=== PATIENT | female | born 1940 | race Hispanic/Latino ===

== ENCOUNTER 2017-08-20 23:53 | Emergency (ER) | payer MEDICARE ==
[2017-08-21] MEDS ORDERED: GUAIFENESIN-CODEINE 5 ML SYRUP ONE (00:26)
[2017-08-21] MEDS ORDERED: ONDANSETRON ODT 4 MG TAB ONE (01:49)
== END 2017-08-21 02:34 | disposition home or self-care (01) ==
LOC: EDH 23:53
DX: J06.9 Acute upper respiratory infection, unspecified (principal); I10 Essential (primary) hypertension; E78.5 Hyperlipidemia, unspecified; C50.919 Malignant neoplasm of unspecified site of unspecified female breast; Z90.49 Acquired absence of other specified parts of digestive tract

== ENCOUNTER 2018-04-10 17:29 | Emergency (ER) | payer OTHER, MEDICARE ==
[2018-04-10 18:06] LABS: BASOPHILS % (AUTO) 1.2 % (0.0-5.0); HEMATOCRIT 39.7 % (36-48); LYMPHOCYTES % (AUTO) 27.2 % (21.0-51.0); MEAN CORPUSCULAR HGB CONC 34.4 g/dL (32.0-36.0); MEAN CORPUSCULAR VOLUME 90.1 fL (79-99); MONOCYTES % (AUTO) 8.6 % (3.0-13.0); NUCLEATED RED BLOOD CELLS 0.1 % (0.0-0.19); PLATELET COUNT (AUTO) 172 K/uL (130-400); RED BLOOD CELL COUNT(AUTO) 4.41 MIL/uL (4.00-5.50); RED CELL DISTRIBUTION WIDTH 14.2 % (11.0-15.5); WHITE BLOOD COUNT (AUTO) 4.8 K/uL (4.8-10.8)
[2018-04-10 18:21] LABS: CREATININE 0.7 mg/dL (0.5-1.5); POTASSIUM 4.1 mmol/L (3.5-5.1)
[2018-04-10 18:25] LABS: ALBUMIN 3.6 g/dL (3.5-5.0); BILIRUBIN,TOTAL 0.2 mg/dL (0.2-1.0); INR 0.95 (0.85-1.15); PARTIAL THROMBOPLASTIN TIME 29.2 SEC (26.3-35.5); TOTAL PROTEIN, SERUM 7.9 g/dL (6.0-8.3)
[2018-04-10 18:35] LABS: APPEARANCE,URINE Clear (CLEAR); BILIRUBIN,URINE Negative (NEGATIVE); COLOR,URINE Yellow (YELLOW); GLUCOSE, URINE (UA) Negative (NEGATIVE); KETONES,URINE Negative (NEGATIVE); LEUKOCYTE ESTERASE ,URINE Small (NEGATIVE); NITRATE,URINE Negative (NEGATIVE); OCCULT BLOOD,URINE Small (NEGATIVE); PH,URINE 7.5 (5.0-8.0); PROTEIN,URINE Negative (NEGATIVE); UROBILINOGEN,URINE 0.2 mg/dL (0.2-1.0)
[2018-04-10 18:46] LABS: BACTERIA,URINE Rare /HPF (None Seen); SQUAMOUS EPITHELIAL CELL,UR Rare /HPF (0-2)
== END 2018-04-10 19:15 | disposition home or self-care (01) ==
LOC: EDH 17:29
DX: I10 Essential (primary) hypertension (principal); M54.2 Cervicalgia; E78.5 Hyperlipidemia, unspecified; Z85.3 Personal history of malignant neoplasm of breast
CPT/HCPCS: 36415; 80053; 81001; 82550; 84484; 85025; 85610; 85730; 93005

== ENCOUNTER 2025-01-04 19:43 | Emergency (ER) | payer OTHER, MEDICAID ==
[~2025-01-04] VITALS: Ht 149.9 cm; Wt 63.0 kg
--- NOTE | 2025-01-04 19:49 | NUR ---
UA CUP NEEDED
--- NOTE | 2025-01-04 20:15 | ERN ---
ED Note History of Present Illness Stated Complaint: HEADACHE, GBW Chief Complaint: Multiple Complaints Time Seen by MD: 19:46 Time Seen by Midlevel: 19:46 Dictation: The patient is an 84-year-old female with a history of hypertension breast cancer on remission, cholecystectomy who presents to the emergency department with complaints of generalized weakness and sensation of feeling hot to her head onset 3:00 p.m.. Patient reports she usually gets like this when she is outside for long periods of time in the heat. Patient denies any recent falls or head trauma. Denies any nausea vomiting or diarrhea. Denies any chest pain or shortness of breath. Patient denies any upper respiratory symptoms. Denies any other symptoms. Allergies: Coded Allergies: ceftriaxone (Unverified Allergy, Mild, RASH, 01/04/25) No Known Allergies (Unverified Allergy, Unknown, 01/04/25) Home Meds Active Scripts Nitrofurantoin Monohyd/M-Cryst (Macrobid 100 mg Capsule) 100 Mg Capsule, 1 CAP PO BID for 5 Days, #10 CAP 0 Refills Prov:JADESOURAVMORIAH INSPECTOR OPEN DIE 01/04/25 Discontinued Scripts Cephalexin Monohydrate (Keflex) 500 Mg Cap, 500 MG PO BID for 7 Days, #14 CAP Prov:MORIAH HANSEN INSPECTOR [facility] DIE 01/04/25 Past Medical History Past Medical History: GERD, High Cholesterol, Hypertension, Other Additional Past Medical Hx: BREAST CANCER Surgical History: Cholecystectomy, Other Surgical History Other: LEFT BREAST RN Note Reviewed/Agreed w/PFSH: Yes Review of System Dictation Constitutional: Negative for fever,chills, and weight loss Eyes: Negative for injury, pain,redness, and discharge ENT: Negative for injury,pain or swelling Cardiovascular: Negative for chest pain, palpitations, and edema Respiratory: Negative for shortness of breath, cough, and wheezing, Abdomen/GI: Negative for abdominal pain, nausea, vomiting, diarrhea, and constipation Back: Negative for injury and pain : Negative for injury, bleeding and discharge MS/Extremity: Negative for injury and deformity Skin: Negative for rash, and discoloration Neuro: Negative for numbness, tingling, and seizure positive for headache, weakness Psych: Negative for suicide ideation, homicidal ideation, and hallucinations Initial Vital Sign VS Vital Signs Date Time Temp Pulse Resp B/P (MAP) Pulse Ox O2 Delivery O2 Flow Rate FiO2 01/04/25 19:44 97.9 79 18 190/80 98 Room Air 01/04/25 20:09 0 21 Physical Exam Dictation Vital Signs reviewed General Appearance: Alert, oriented x 3, no acute distress, well developed, nourished. Head and Face: non-traumatic. Eyes: PERRL, pink conjunctivas, eyelid no trauma, anterior chamber with arcus senilis. Ears: Pinnas intact and no signs of trauma or erythema ear canals clear and no discharge TM no erythema Nose: No discharge, no bleeding. Oropharynx: Mouth normal, tongue pink. pharynx clear,no erythema, tonsils no exudates, no abscesses noted, mucous membrane moist Neck: Supple, non-tender, no thyromegaly, no masses, no JVD, no bruits Breast:Deferred Chest:No tenderness, no crepitus, no paradoxical movement, no retractions Lungs:Clear, well-ventilated, symmetric, no rales, no wheezing, no rhonchi, no stridor, good breath sounds bilaterally Heart: Regular rate, regular rhythm, no murmur, no gallops Vascular: no peripheral edema, Abdomen: Soft, positive bowel sounds, nondistended, no guarding, nontender, no rebound, no masses no hepatomegaly, no splenomegaly, no Zavala's sign, no hernias. Rectal: Deferred Genital: Deferred Neurological: Normal speech, motor function intact, sensory function intact , upper extremities equal in strength, lower extremities equal in strength. Musculoskeletal: Neck nontender, full range of motion, back nontender, full range of motion, Extremities: nontender, full range of motion Skin: Color pink, dry, no turgor, no rash, no lacerations, no abrasions, no contusions. Lymphatic: Deferred Results (Laboratory/Radiology) Laboratory/Radiology Laboratory Tests Test 01/04/25 20:06 White Blood Count 5.2 K/uL (4.8-10.8) Red Blood Count 4.41 MIL/uL (4.00-5.50) Hemoglobin 13.3 g/dL (12.0-16.0) Hematocrit 38.8 % (36-48) Mean Corpuscular Volume 88.0 fL (79-99) Mean Corpuscular Hemoglobin 30.2 pg (27.0-33.0) Mean Corpuscular Hemoglobin Concent 34.3 g/dL (32.0-36.0) Red Cell Distribution Width 13.1 % (11.0-15.5) Platelet Count 229 K/uL (130-400) Mean Platelet Volume 9.3 fL (7.5-10.5) Immature Granulocyte % (Auto) 0.4 % (0-1) Neutrophils (%) (Auto) 50.5 % (40.0-77.0) Lymphocytes (%) (Auto) 33.4 % (21.0-51.0) Monocytes (%) (Auto) 9.1 % (3.0-13.0) Eosinophils (%) (Auto) 5.6 % (0.0-8.0) Basophils (%) (Auto) 1.0 % (0.0-5.0) Neutrophils # (Auto) 2.6 K/uL (1.8-7.7) Lymphocytes # (Auto) 1.7 K/uL (1.0-4.8) Monocytes # (Auto) 0.5 K/uL (0.1-1.0) Eosinophils # (Auto) 0.29 K/uL (0.00-0.70) Basophils # (Auto) 0.05 K/uL (0.00-0.20) Absolute Immature Granulocyte (auto 0.02 K/uL (0-1) Nucleated Red Blood Cells 0.0 % (0.0-0.19) Urine Color COLORLESS (YELLOW) Urine Appearance CLEAR (CLEAR) Urine pH 7.0 (5.0-8.0) Urine Specific Ira 1.005 (1.001-1.031) Urine Protein NEGATIVE mg/dL (NEGATIVE) Urine Glucose (UA) NEGATIVE mg/dL (NEGATIVE) Urine Ketones NEGATIVE mg/dL (NEGATIVE) Urine Occult Blood SMALL (NEGATIVE) H Urine Nitrate NEGATIVE (NEGATIVE) Urine Bilirubin NEGATIVE mg/dL (NEGATIVE) Urine Urobilinogen 0.2 mg/dL (0.2-1.0) Urine Leukocyte Esterase 250 Julius/uL (NEGATIVE) H Urine RBC 6-10 /HPF (0-1) H Urine WBC 26-50 /HPF (0-1) H Urine Squamous Epithelial Cells FEW /HPF (0-2) Urine Other Crystals (Auto) 1 /HPF (None Seen) Urine Bacteria RARE /HPF (None Seen) Sodium Level 128 mmol/L (136-145) L Potassium Level 4.2 mmol/L (3.5-5.1) Chloride Level 93 mmol/L (101-111) L Carbon Dioxide Level 28 mmol/L (21-32) Blood Urea Nitrogen 12 mg/dL (7-18) Creatinine 0.5 mg/dL (0.5-1.0) Glomerular Filtration Rate Calc 93 mL/min (>90) Random Glucose 105 mg/dL (70-105) Total Calcium 8.5 mg/dL (8.5-10.1) Magnesium Level 1.90 mg/dL (1.80-2.40) Total Creatine Kinase 89 U/L (21-232) Troponin I High Sensitivity 6 ng/L (4-50) REASON: headache ORDERING PHYSICIAN: MORIAH HANSEN PROCEDURE: HEAD WO - CT HEAD/BRAIN W/O CONTRAST CT HEAD WITHOUT CONTRAST INDICATION: Headache TECHNIQUE: Noncontrast axial helical CT images from the vertex through the skull base using 5 mm slice thickness without contrast material. Coronal and sagittal reconstructions were also included. Dose reduction techniques was used using integrated, automated and adaptive dose reduction exposure control. CT was performed with one or more of the following dose reduction techniques: Automated exposure control, adjustment of the mA and/or kV according to patient size, or use of iterative reconstruction technique. COMPARISON: None FINDINGS: Scattered and coalescent subcortical and periventricular white matter low attenuating areas likely represent residual of chronic small vessel arteriopathy and/or remote vascular insult. Generalized mild cerebral cortical atrophy is present.. No evidence for abnormal extra-axial fluid collections or masses. The ventricles and sulci are normal in size and configuration. No evidence for intracranial parenchymal, epidural, or subdural hemorrhage, mass effect or midline shift. The foreman-white matter differentiation is well preserved. No secondary evidence to suggest acute ischemia. Mild calcific plaque is present along the yang of the cavernous segments of both internal carotid arteries. The brainstem and cerebellum appear normal. The visualized orbits appear unremarkable. The visible paranasal sinuses and mastoid air cells are clear. The calvarium appears normal. IMPRESSION: Chronic white matter ischemic changes, mild brain atrophy, and arteriosclerotic disease as described, without acute component. REASON: weakness ORDERING PHYSICIAN: MORIAH HANSEN PROCEDURE: CXR1VW - CHEST 1VW PORTABLE CHEST RADIOGRAPH INDICATION: weakness COMPARISON: None FINDINGS: Heart size is normal. The pulmonary vascularity and julius appear normal. No abnormal pulmonary parenchymal opacity or consolidation identified. No significant pleural effusion noted. No pneumothorax detected. IMPRESSION: No radiographic evidence for any acute cardiopulmonary process. Labs Reviewed?: Yes EKG: (+) rhythm (Normal sinus rhythm) EKG Comment: Date:01/04/2025 Time:2014 Ventricular rate:79 WI interval:154 QRS duration:70 QT/QTc:376 EKG interpretation: Normal sinus rhythm Reviewed by ED Attending no STEMI ED Course ED Course Orders Procedure Category Date Status Time Cbc With Differential LAB 01/04/25 Complete 20:02 Chest 1vw RAD 01/04/25 Resulted 20:02 12 Lead Ekg Tracing- EKG 01/04/25 Logged Technical 20:02 0.9%Nacl 1000ml (Ns PHA 01/04/25 In Process 1000ml) 20:30 Acetaminophen 325 Tab PHA 01/04/25 Complete (Tylenol 325mg Tab 20:30 Magnesium LAB 01/04/25 Complete 20:02 Creatine Kinase, Total LAB 01/04/25 Complete 20:02 Troponin I High LAB 01/04/25 Complete Sensitivity 20:02 Urinalysis Profile LAB 01/04/25 Complete 20:02 Basic Metabolic Panel LAB 01/04/25 Complete 20:02 Ct Head/Brain W/O CT 01/04/25 Resulted Contrast 20:02 Culture Urine DORIS 01/04/25 In Process 20:21 Ceftriaxone 1g Vial PHA 01/04/25 Complete (Rocephine 1g Inj) 21:00 Hydralazine 20mg Inj PHA 01/04/25 Complete (Apresoline 20mg In 21:30 Diphenhydramine Hcl PHA 01/04/25 Complete (Benadryl Inj) 23:30 Methylprednisolone PHA 01/04/25 Complete Succ 125mg (Solu-Medr 23:30 Famotidine 20mg Vial PHA 01/04/25 Complete (Pepcid 20mg Vial) 23:30 Current Medications Medications (Trade) Dose Ordered Sig/John Route PRN Reason Start Time Stop Time Status Last Admin Dose Admin Acetaminophen (TYLenol 325MG TAB) 650 mg ONCE ONCE PO 01/04/25 20:30 01/04/25 20:31 DC 01/04/25 20:23 Ceftriaxone Sodium (ROCEphine 1G INJ) 1 gm ONCE ONCE IVPB 01/04/25 21:00 01/04/25 21:01 DC 01/04/25 21:10 Diphenhydramine HCl (BENAdryl INJ) 25 mg ONCE ONCE IV 01/04/25 23:30 01/04/25 23:31 DC 01/04/25 23:27 Famotidine (Pepcid 20mg Vial) 20 mg ONCE ONCE IV 01/04/25 23:30 01/04/25 23:31 DC 01/04/25 23:26 Hydralazine HCl (APRESOLine 20MG INJ) 10 mg ONCE ONCE IV 01/04/25 21:30 01/04/25 21:31 DC 01/04/25 21:10 Methylprednisolone Sodium Succinate (Solu-medROL 125MG) 125 mg ONCE ONCE IVP 01/04/25 23:30 01/04/25 23:31 DC 01/04/25 23:27 Sodium Chloride 1,000 ml @ 125 mls/hr ONCE ONCE IV 01/04/25 20:30 01/05/25 04:29 01/04/25 20:22 Vital Signs Date Time Temp Pulse Resp B/P (MAP) Pulse Ox O2 Delivery O2 Flow Rate FiO2 01/04/25 23:53 98.2 101 17 125/56 98 Room Air* 0 01/04/25 23:35 98.4 111 19 153/73 98 Room Air* 0 01/04/25 22:54 98.4 98 17 128/60 98 Room Air* 0 01/04/25 22:00 98.2 99 19 132/60 99 Room Air* 0 01/04/25 21:40 98.1 92 17 167/77 98 Room Air* 0 01/04/25 21:02 98.2 80 16 193/82 99 Room Air* 0 01/04/25 20:09 98.2 74 18 189/90 100 Room Air* 0 01/04/25 19:44 97.9 79 18 190/80 98 Room Air Medical Decision Making MDM The patient is an 84-year-old female with a history of hypertension breast cancer on remission, cholecystectomy who presents to the emergency department with complaints of generalized weakness and sensation of feeling hot to her head onset 3:00 p.m.. Patient reports she usually gets like this when she is outside for long periods of time in the heat. Patient denies any recent falls or head trauma. Denies any nausea vomiting or diarrhea. Denies any chest pain or shortness of breath. Patient denies any upper respiratory symptoms. Denies any other symptoms. CBC showed no leukocytosis, no anemia, chemistry showed mild hypochloremia, hyponatremia, normal renal function, negative troponin. Urinalysis positive for leukocyte esterase. Patient was giving a dose of Rocephin and we will be discharged on antibiotics. CT head showed no acute component. Chest x-ray showed no acute infiltrates. On physical assessment patient is neurologically intact, in no acute distress, blood pressure improved. Patient with no nausea vomiting or diarrhea. No chest pain or shortness of breath. Patient denies any dizziness or headache. Labs and imaging discussed with the patient and patient's daughter who agreed to be discharged. Patient was giving a L of fluids in ER. 1119: patient develop allergic reaction possibly to recephin. mild redness to face but no angioedema, Patient in no distress. We will treat with benadryl and re evaluate. Patients symptoms improved we will discharge and change antibiotic to macrobid. Differential diagnosis: Dehydration, electrolyte imbalance, ACS, intracerebral hemorrhage Need for hospitalization: Patient does not meet criteria for hospitalization. There are no social concerns with this patient. DX & DISP Disposition: Discharge Departure Impression: Primary Impression: Mild dehydration Additional Impression: UTI (urinary tract infection) Condition: Stable Scripts Nitrofurantoin Monohyd/M-Cryst (Macrobid 100 mg Capsule) 100 Mg Capsule 1 CAP PO BID for 5 Days, #10 CAP 0 Refills Prov: MORIAH HANSEN [facility] 01/04/25 Additional Instructions: Your labs showed that you were a little dehydrated. You also have a urinary tract infection. Your CT of the head was normal, your x-ray was normal. Please follow up with your primary doctor in 1-2 days. Take your medications as prescribed. If anything worsens please return to ER. FOLLOW-UP WITH PRIMARY CARE PROVIDER IN 1 TO 2 DAYS. TAKE MEDICATIONS DIRECTED HERE IN THE EMERGENCY ROOM. OKAY TO CONTINUE HOME MEDICATIONS UNLESS OTHERWISE DISCUSSED DURING YOUR VISIT IN THE EMERGENCY ROOM TODAY. RETURN TO YOUR NEAREST EMERGENCY ROOM IF SYMPTOMS WORSEN OR IF THERE IS NO IMPROVEMENT. CALL 911 IF YOU NEED IMMEDIATE ASSISTANCE. TAKE TYLENOL OR MOTRIN [id number] NEEDED AND IF NO CONTRAINDICATIONS ARE PRESENT. INCREASE ORAL HYDRATION. A WOUND CULTURE OR URINE CULTURE WAS ORDERED HERE IN THE EMERGENCY ROOM DEPARTMENT PLEASE FOLLOW-UP WITH PRIMARY CARE PROVIDER AND ADVISE THEM TO GET REPEAT PORTS FROM OUR FACILITY. IF YOU HAD ANY ADA WRAP/SPLINTS THAT WERE APPLIED HERE, PLEASE DO NOT REMOVE THEM UNTIL YOU SEE YOUR PRIMARY CARE OR SPECIALTY. Referrals: SELF,REFERRAL (PCP) Time of Disposition: 22:28 I have reviewed the case, and I agree with, Diagnosis and Plan MORIAH HANSEN INSPECTOR OPEN DIE Jan 04, 2025 20:15
[2025-01-04 20:16] LABS: BASOPHILS # (AUTO) 0.05 K/uL (0.00-0.20); EOSINOPHILS # (AUTO) 0.29 K/uL (0.00-0.70); EOSINOPHILS % (AUTO) 5.6 % (0.0-8.0); HEMATOCRIT 38.8 % (36-48); IMMATURE GRANULOCYTE ABSOLUTE 0.02 K/uL (0-1); LYMPHOCYTES # (AUTO) 1.7 K/uL (1.0-4.8); LYMPHOCYTES % (AUTO) 33.4 % (21.0-51.0); MEAN CORPUSCULAR HEMOGLOBIN 30.2 pg (27.0-33.0); MEAN CORPUSCULAR HGB CONC 34.3 g/dL (32.0-36.0); MONOCYTES # (AUTO) 0.5 K/uL (0.1-1.0); MONOCYTES % (AUTO) 9.1 % (3.0-13.0); NEUTROPHILS # (AUTO) 2.6 K/uL (1.8-7.7); NEUTROPHILS % (AUTO) 50.5 % (40.0-77.0); PLATELET COUNT (AUTO) 229 K/uL (130-400); RED BLOOD CELL COUNT(AUTO) 4.41 MIL/uL (4.00-5.50); RED CELL DISTRIBUTION WIDTH 13.1 % (11.0-15.5); WHITE BLOOD COUNT (AUTO) 5.2 K/uL (4.8-10.8)
[2025-01-04 20:20] LABS: APPEARANCE,URINE CLEAR (CLEAR); BILIRUBIN,URINE NEGATIVE (NEGATIVE); COLOR,URINE COLORLESS (YELLOW); GLUCOSE, URINE (UA) NEGATIVE (NEGATIVE); KETONES,URINE NEGATIVE (NEGATIVE); LEUKOCYTE ESTERASE ,URINE 250 Leu/uL (NEGATIVE); NITRATE,URINE NEGATIVE (NEGATIVE); OCCULT BLOOD,URINE SMALL (NEGATIVE); PROTEIN,URINE NEGATIVE (NEGATIVE); UROBILINOGEN,URINE 0.2 mg/dL (0.2-1.0)
[2025-01-04 20:21] LABS: ADD UA MICROSCOPIC YES
[2025-01-04 20:22] LABS: BACTERIA,URINE RARE /HPF (None Seen); SQUAMOUS EPITHELIAL CELL,UR FEW /HPF (0-2); UNCLASSIFIED CRYSTAL 1 /HPF (None Seen); WBC,URINE 26-50 /HPF (0-1)
[2025-01-04] MEDS: 0.9%NACL 1000ML 1,000 ML IV ONE (20:22)
[2025-01-04] MEDS: acetaMINOPHEN 325 MG TAB PO ONE (20:23)
[2025-01-04 20:25] LABS: CREATININE 0.5 mg/dL (0.5-1.0); POTASSIUM 4.2 mmol/L (3.5-5.1)
--- NOTE | 2025-01-04 20:30 | HMCIMG ---
PORTABLE CHEST RADIOGRAPH INDICATION: weakness COMPARISON: None FINDINGS: Heart size is normal. The pulmonary vascularity and julius appear normal. No abnormal pulmonary parenchymal opacity or consolidation identified. No significant pleural effusion noted. No pneumothorax detected. IMPRESSION: No radiographic evidence for any acute cardiopulmonary process.
[2025-01-04 20:34] LABS: MAGNESIUM 1.9 mg/dL (1.80-2.40)
[2025-01-04] MEDS: hydrALAZine 20MG/ML VIAL IV ONE (21:10)
[2025-01-04] MEDS: cefTRIAXone 1G VIAL IVPB ONE (21:10)
--- NOTE | 2025-01-04 21:47 | HMCIMG ---
CT HEAD WITHOUT CONTRAST INDICATION: Headache TECHNIQUE: Noncontrast axial helical CT images from the vertex through the skull base using 5 mm slice thickness without contrast material. Coronal and sagittal reconstructions were also included. Dose reduction techniques was used using integrated, automated and adaptive dose reduction exposure control. CT was performed with one or more of the following dose reduction techniques: Automated exposure control, adjustment of the mA and/or kV according to patient size, or use of iterative reconstruction technique. COMPARISON: None FINDINGS: Scattered and coalescent subcortical and periventricular white matter low attenuating areas likely represent residual of chronic small vessel arteriopathy and/or remote vascular insult. Generalized mild cerebral cortical atrophy is present.. No evidence for abnormal extra-axial fluid collections or masses. The ventricles and sulci are normal in size and configuration. No evidence for intracranial parenchymal, epidural, or subdural hemorrhage, mass effect or midline shift. The foreman-white matter differentiation is well preserved. No secondary evidence to suggest acute ischemia. Mild calcific plaque is present along the yang of the cavernous segments of both internal carotid arteries. The brainstem and cerebellum appear normal. The visualized orbits appear unremarkable. The visible paranasal sinuses and mastoid air cells are clear. The calvarium appears normal. IMPRESSION: Chronic white matter ischemic changes, mild brain atrophy, and arteriosclerotic disease as described, without acute component.
[2025-01-04] MEDS ORDERED: CEPH500B PO (22:29)
--- NOTE | 2025-01-04 23:13 | NUR ---
PT REPORTED FEELING WARMTH AND REDNESS TO HER FACE UPON LEAVING FACILITY AFTER DC, PT PLACED BACK INTO ROOM 20, GUIDANCE AND CONTROL SYSTEM ENGINEER MADE AWARE OF PT COMPLAINTS.
[2025-01-04] MEDS ORDERED: NITR100C4 PO (23:19)
[2025-01-04] MEDS: FAMOTIDINE 20MG VIAL IV ONE (23:26)
[2025-01-04] MEDS: Solu-medROL 125MG VIAL IVP ONE (23:27)
[2025-01-04] MEDS: DiphenhydrAMINE HCL 50 MG/ML VIAL IV ONE (23:27)
[2025-01-04 23:53] VITALS: BP 125/56; PULSE 101; RESP 17; TEMP 98.2; O2SAT 98
--- NOTE | 2025-01-04 23:55 | NUR ---
PT REPORTS RELIEF OF SYMPTOMS, PER STEM ROLLER OR CRUSHER OPERATOR, OKAY FOR DC AT THIS TIME,, PRESCRIPTION CHANGED WITH PHARMACY, ALLERGY LIST UPDATED, AFTER CARE INSTRUCTIONS PROVIDED TO PT AND DAUGHTER AT BEDSIDE. BOTH VERBALIZED UNDERSTANDING OF ALL DC INSTRUCTIONS PROVIDED. VSS, RESP EVEN AND UNLABORED ON RA, DENIES PAIN, NO SIGNS OF ACUTE DISTRESS NOTED AT THIS TIME.
--- NOTE | 2025-01-05 10:31 | EKG ---
[facility] Test Date: 2025-01-04 Test Time: 20:15:03 Pat Name: ARJUN COLON Department: [facility] Room: Gender: F English Division Chair: [id number] : 1940 Requested By: MORIAH HANSEN Order Number: [id number] Reading MD: Tamra Jessica Measurements Intervals [place] Rate: 79 P: 54 [place]: 154 QRS: 83 QRSD: 70 T: 19 QT: 376 QTc: 431 Interpretive Statements Normal sinus rhythm Compared to ECG 04/10/2018 17:50:16 No significant changes Electronically Signed On 01-05-2025 13:22:26 CDT by Tamra Jessica Please click the below link to view image of tracing.
== END 2025-01-05 00:02 | disposition home or self-care (01) ==
LOC: EDH 19:43
DX: E86.0 Dehydration (principal); N39.0 Urinary tract infection, site not specified; E78.00 Pure hypercholesterolemia, unspecified; I10 Essential (primary) hypertension; Z85.3 Personal history of malignant neoplasm of breast; Z88.1 Allergy status to other antibiotic agents; Z90.49 Acquired absence of other specified parts of digestive tract
CPT/HCPCS: 99285; 96365; 96375; 70450; 71045; 82550; 83735; 84484; 80048; 85025; 87086; 81001; 36415; 93005; J2919; J1200; J3490; J0360; J0696